=== PATIENT | female | born 1945 | race Caucasian/White ===

== ENCOUNTER → 2022-01-09 09:03 | Outpatient (CLI) | payer MEDICARE, OTHER, SELFPAY ==
--- NOTE | 2022-01-09 | DI.MG.S_ITS ---
UNILATERAL LEFT DIGITAL DIAGNOSTIC MAMMOGRAM 3D/2D WITH ADDITIONAL VIEWS: 01/09/2022 CLINICAL: Additional evaluation requested from prior study. Comparison is made to exams dated: 11/06/2021 mammogram, 04/21/2017 mammogram, and 02/20/2015 mammogram - [facility]. There are scattered fibroglandular elements in left breast. There are diffuse segmental punctate calcifications in the left breast anterior depth central to the nipple seen on the mediolateral oblique view only. These are not seen as well in additional views. The oval asymmetry with an indistinct margin in the left breast anterior depth medial region seen on the craniocaudal view only is no longer seen and is consistent with fibroglandular tissue. This is not seen in additional views. No other significant masses or calcifications are seen in the breast. IMPRESSION: PROBABLY BENIGN The diffuse segmental punctate calcifications in the left breast anterior depth central to the nipple seen on the mediolateral oblique view only are probably benign. They are seen on ML view best but no prior ML has been done. On other views there is no change. A follow-up mammogram in 6 months is recommended to demonstrate stability. The asymetry seen on screening mammogram clears with compression. This exam was interpreted at Station ID: [id number]. NOTE: For mammograms, a report in lay terms will be sent to the patient. Approximately 15% of breast malignancies will not be visualized mammographically. In the management of a palpable breast mass, a negative mammogram must not discourage biopsy of a clinically suspicious lesion. Electronically Signed By: Davian Werner acr/:01/09/2022 10:05:42 letter sent: Followup Recommended ACR BI-RADS Category 3: Probably benign 3343F
== END ==
PROVIDERS: PCP Registered Nurse; Referring Provider Registered Nurse; Visit Provider Registered Nurse
DX: R92.1 Mammographic calcification found on diagnostic imaging of breast (principal)
CPT/HCPCS: 77065; G0279

== ENCOUNTER → 2022-08-07 13:12 | Outpatient (CLI) | payer MEDICARE, OTHER, SELFPAY ==
--- NOTE | 2022-08-07 | DI.MG.S_ITS ---
UNILATERAL LEFT DIGITAL DIAGNOSTIC MAMMOGRAM 3D/2D: 08/07/2022 CLINICAL: Patient returns for 6 month follow up on left breast for calcifications. Comparison is made to exams dated: 01/09/2022 mammogram - [facility], 11/06/2021 mammogram, 04/21/2017 mammogram, and 02/20/2015 mammogram - [facility]. There are scattered areas of fibroglandular density in the left breast (category b / 25%-50% glandular tissue). There are stable regional fine calcifications in the left breast at 2 o'clock anterior depth. No other significant masses or calcifications are seen in the breast. IMPRESSION: PROBABLY BENIGN The stable regional fine calcifications in the left breast are probably benign. A follow-up mammogram in 6 months is recommended to demonstrate stability. Patient will be due for right mammogram at that time. Exam findings were conveyed to the patient. Based on the Tyrer Cuzick model (a risk assessment model) the patient's lifetime risk is 5.2% and her 10 year risk is 4.6%. According to the ACR, ACS, and NCCN guidelines, an annual breast MRI exam along with mammogram is recommended if the patient's lifetime risk is 20% or greater. This exam was interpreted at Station ID: [id number]. NOTE: For mammograms, a report in lay terms will be sent to the patient. Approximately 15% of breast malignancies will not be visualized mammographically. In the management of a palpable breast mass, a negative mammogram must not discourage biopsy of a clinically suspicious lesion. Electronically Signed By: Krishna Robles M.D. [facility] [place]:08/07/2022 14:15:38 letter sent: Followup Recommended ACR BI-RADS Category 3: Probably benign 3343F
== END ==
PROVIDERS: PCP Registered Nurse; Referring Provider Registered Nurse; Visit Provider Registered Nurse
DX: R92.8 Other abnormal and inconclusive findings on diagnostic imaging of breast; R92.1 Mammographic calcification found on diagnostic imaging of breast
CPT/HCPCS: 77065; G0279

== ENCOUNTER → 2023-02-24 13:31 | Outpatient (CLI) | payer MEDICARE, OTHER, SELFPAY ==
--- NOTE | 2023-02-24 | DI.MG.S_ITS ---
BILATERAL DIGITAL DIAGNOSTIC MAMMOGRAM 3D/2D: 02/24/2023 CLINICAL: Short term follow up, due bilateral. Comparison is made to exams dated: 08/07/2022 mammogram, 01/09/2022 mammogram - [facility], 11/06/2021 mammogram, 04/21/2017 mammogram, and 02/20/[address] mammogram - [facility]. There are scattered areas of fibroglandular density in both breasts (category b / 25%-50% glandular tissue). Prior asymmetry is no longer seen in the medial left breast in the middle depth. This is consistent with overlapping fibroglandular tissue. There are linear regional fine calcifications in the left breast at 2 o'clock anterior depth. These are not significantly changed. No other significant masses, calcifications, or other findings are seen in either breast. Mammograms are otherwise stable. IMPRESSION: PROBABLY BENIGN The linear regional fine calcifications in the left breast are probably benign. Resolved left medial breast asymmetry, likely overlapping glandular tissue. A follow-up left mammogram in 6 months is recommended to demonstrate stability. Right mammogram is normal. Findings and recommendations were conveyed to the patient at time of exam. Based on the Tyrer Cuzick model (a risk assessment model) the patient's lifetime risk is 4.8% and her 10 year risk is 4.8%. According to the ACR, ACS, and NCCN guidelines, an annual breast MRI exam along with mammogram is recommended if the patient's lifetime risk is 20% or greater. This exam was interpreted at Station ID: [id number]. NOTE: For mammograms, a report in lay terms will be sent to the patient. Approximately 15% of breast malignancies will not be visualized mammographically. In the management of a palpable breast mass, a negative mammogram must not discourage biopsy of a clinically suspicious lesion. Electronically Signed By: Patricia ceja/:02/24/2023 14:46:06 letter sent: Followup Recommended ACR BI-RADS Category 3: Probably benign 3343F
== END ==
PROVIDERS: PCP Registered Nurse; Referring Provider Registered Nurse; Visit Provider Registered Nurse
DX: R92.8 Other abnormal and inconclusive findings on diagnostic imaging of breast (principal); R92.1 Mammographic calcification found on diagnostic imaging of breast
CPT/HCPCS: 77066; G0279

== ENCOUNTER → 2023-10-06 09:56 | Outpatient (CLI) | payer MEDICARE, OTHER, SELFPAY ==
--- NOTE | 2023-10-06 09:57 | DI.MG.S_ITS ---
UNILATERAL LEFT DIGITAL DIAGNOSTIC MAMMOGRAM 3D/2D: 10/06/2023 CLINICAL: Short follow up. Comparison is made to exams dated: 02/24/2023 mammogram, 08/07/2022 mammogram, 01/09/2022 mammogram - [facility], and 11/06/2021 mammogram - [facility]. There are scattered areas of fibroglandular density in the left breast (category b / 25%-50% glandular tissue). There are regional fine calcifications in the left breast superior lateral quadrant anterior depth. These are not significantly changed. No other significant masses or calcifications are seen in the breast. IMPRESSION: PROBABLY BENIGN The regional fine calcifications in the left breast are probably benign. A follow-up mammogram in 6 months is recommended to demonstrate stability. Based on the Tyrer Cuzick model (a risk assessment model) the patient's lifetime risk is 4.8% and her 10 year risk is 4.8%. According to the ACR, ACS, and NCCN guidelines, an annual breast MRI exam along with mammogram is recommended if the patient's lifetime risk is 20% or greater. This exam was interpreted at Station ID: [id number]. NOTE: For mammograms, a report in lay terms will be sent to the patient. Approximately 15% of breast malignancies will not be visualized mammographically. In the management of a palpable breast mass, a negative mammogram must not discourage biopsy of a clinically suspicious lesion. Electronically Signed By: Trevon shah/josiah:10/06/2023 10:53:57 letter sent: Followup Recommended ACR BI-RADS Category 3: Probably benign 3343F
== END ==
LOC: MAMMO 09:56
PROVIDERS: PCP Registered Nurse; Referring Provider Registered Nurse; Visit Provider Registered Nurse
DX: R92.2 Inconclusive mammogram (principal); R92.1 Mammographic calcification found on diagnostic imaging of breast; R92.322 Mammographic fibroglandular density, left breast
CPT/HCPCS: 77065; G0279

== ENCOUNTER → 2024-04-07 09:33 | Outpatient (CLI) | payer MEDICARE, OTHER, SELFPAY ==
--- NOTE | 2024-04-07 09:33 | DI.MG.S_ITS ---
BILATERAL DIGITAL DIAGNOSTIC MAMMOGRAM 3D/2D SHORT-TERM FOLLOW-UP: 04/07/2024 CLINICAL: Patient returns for 2 year follow up of the left breast, due for bilateral exam. Comparison is made to exams dated: 10/06/2023 mammogram, 02/24/2023 mammogram, 08/07/2022 mammogram, 01/09/2022 mammogram - [facility], and 11/06/2021 mammogram - [facility]. There are scattered areas of fibroglandular density in both breasts (category b / 25%-50% glandular tissue). There are regional fine heterogeneous calcifications in the left breast superior lateral quadrant anterior depth. These are not significantly changed. No other significant masses, calcifications, or other findings are seen in either breast. IMPRESSION: PROBABLY BENIGN The regional fine heterogeneous calcifications in the left breast are not significantly changed and are probably benign. A conservative follow-up bilateral mammogram in 12 months is recommended to document snf stability. Findings and recommendations were conveyed to the patient during today's evaluation. Based on the Tyrer Cuzick model (a risk assessment model) the patient's lifetime risk is 4.4% and her 10 year risk is 0.0%. According to the ACR, ACS, and NCCN guidelines, an annual breast MRI exam along with mammogram is recommended if the patient's lifetime risk is 20% or greater. This exam was interpreted at Station ID: [id number]. NOTE: For mammograms, a report in lay terms will be sent to the patient. Approximately 15% of breast malignancies will not be visualized mammographically. In the management of a palpable breast mass, a negative mammogram must not discourage biopsy of a clinically suspicious lesion. Electronically Signed By: Vini Nielson M.D. [facility]/:04/07/2024 10:53:34 letter sent: Followup Recommended ACR BI-RADS Category 3: Probably benign [id number]
== END ==
PROVIDERS: PCP Registered Nurse; Referring Provider Registered Nurse; Visit Provider Registered Nurse
DX: R92.2 Inconclusive mammogram (principal); R92.1 Mammographic calcification found on diagnostic imaging of breast; R92.323 Mammographic fibroglandular density, bilateral breasts
CPT/HCPCS: 77066; G0279